=== PATIENT | female | born 1975 | race Caucasian/White ===

== ENCOUNTER → 2016-12-05 | Outpatient (CLI) | payer OTHER ==
--- NOTE | 2016-12-05 10:32 | RAD ---
Indication lung nodule. History of kidney stones. Noncontrast imaging through the chest and abdomen was performed. The pelvis was not examined. No prior imaging of the chest or abdomen is available. CT chest: Findings. There is some mild mediastinal adenopathy. Definite pathologic mediastinal or hilar adenopathy is not seen. There is some mild dilatation of the esophagus below the alexsandra. This is nonspecific. A dominant soft tissue mass in either lung is not seen. There is a 2 to 3 mm nodule peripherally in the right lower lobe, image 26 series 2. Follow-up imaging along the lines of the Fleischner criteria should be considered. There is a peripheral nodule in the right middle lobe, image 29 measuring approximately [address] abdomen: Findings. The spleen is mildly enlarged but otherwise unremarkable. The liver appears normal. Clips are seen in the gallbladder fossa. The pancreas appears normal. No adrenal masses are seen. The left kidney appears normal. No left renal calculi are seen. There is a minute, approximately 2 mm, right renal calculus. The right kidney otherwise appears unremarkable. The pancreas appears unremarkable. Acute or definite significant finding in the abdomen is not seen. There is no significant central or retroperitoneal adenopathy. IMPRESSION: No acute finding seen in the chest or abdomen. Mild mediastinal adenopathy. This is nonspecific. Mild splenomegaly. Minute right renal calculus Small pulmonary nodules. Follow-up imaging along the lines of the Fleischner criteria should be considered Nodules detected incidentally at non-screening CT Nodule size (mm) less than or equal to 4 Low Risk patients- no follow-up needed High Risk patients- follow-up at 12 months and if no change, no further imaging needed. Nodule size > 4-6 mm Low risk patients- follow- up at 12 months and if no change, no further imaging needed High risk patients- initial follow-up CT at 6-12 months and then at 18-24 months if no change. Nodule Size > 6-8 mm Low risk patients- initial follow-up CT at 6-12 months and then at 18-24 months if no change. High risk patients- initial follow- up CT at 3-6 months and then at 9-12 months if no change, Nodule Size >8 mm Either low or high risk patients: Follow-up CT at around 3, 9 and 24 [address], PET, and/or biopsy Note: newly detected indeterminate nodule in person 35 years of age or older. Low risk patients- minimal or absent history of smoking and/or other known risk factors. High risk patients- history of smoking or of other known risk factors. PQRS Compliance Statement: One or more of the following individualized dose reduction techniques were utilized for this examination: 1. Automated exposure control 2. Adjustment of the mA and/or kV according to patient size 3. Use of iterative reconstruction technique
== END | disposition home or self-care (01) ==
LOC: CT 09:35
PROVIDERS: ATTEND Nurse Practitioner Family
DX: R93.5 Abnormal findings on diagnostic imaging of other abdominal regions, including retroperitoneum (principal); R91.1 Solitary pulmonary nodule; Z87.442 Personal history of urinary calculi
CPT/HCPCS: 71250; 74150

== ENCOUNTER → 2017-01-22 | Outpatient (CLI) | payer OTHER ==
--- NOTE | 2017-01-22 12:30 | RAD ---
EXAM: Abdomen one view. HISTORY: Right renal stone. COMPARISON: 12/05/2016. FINDINGS: A frontal view of the abdomen is obtained. The small right renal calculus noted on prior CT is not detectable by radiographs. There are no clear ureteral calculi. There are no distended small bowel loops. There is gas distally. Cholecystectomy clips are noted. An anastomotic suture line is seen in the left upper quadrant. IMPRESSION: 1. The previously noted small right renal calculus is not detectable by radiographs.
== END | disposition home or self-care (01) ==
LOC: RAD 09:44
PROVIDERS: ATTEND Nurse Practitioner Occupational Health
DX: N20.0 Calculus of kidney (principal)
CPT/HCPCS: 74000

== ENCOUNTER → 2017-02-28 | Outpatient (CLI) | payer OTHER ==
[~2017-02-28] MED LIST: FUROSEMIDE 40 MG/4 ML VIAL. IVP ONE
--- NOTE | 2017-02-28 12:13 | RAD ---
Radionuclide renal scan with Lasix, 02/28/2017: History: Right flank pain Imaging of the kidneys was performed following IV injection of 10.6 mCi of technetium 99m MAG3. There is prompt symmetrical opacification of both kidneys. There is prompt uptake of the radionuclide by both kidneys in a symmetric pattern. 40 mg of Lasix was administered IV 15 minutes into the exam. There is good clearing of contrast from the renal collecting systems. No significant parenchymal retention is evident on the delayed images. Normal bladder activity is seen. IMPRESSION: 1. Normal symmetric renal function. 2. No evidence of renal obstruction.
== END | disposition home or self-care (01) ==
LOC: NM 08:38
PROVIDERS: ATTEND Urology
DX: R10.9 Unspecified abdominal pain (principal)
CPT/HCPCS: 78708; 96374; 96375; A9562; J1940

== ENCOUNTER → 2017-09-17 | Outpatient (CLI) | payer OTHER ==
--- NOTE | 2017-09-17 15:22 | KCIC ---
EXAM: Left ankle, 3 views. HISTORY: Pain. COMPARISON: None. FINDINGS: Frontal, lateral and mortise views of the left ankle are obtained. There is no fracture, dislocation or subluxation. The ankle mortise is intact. No osteochondral lesion is seen. IMPRESSION: No acute osseous finding. Electronically signed by: Katarzyna Rosales MD (09/17/2017 3:19 PM) [facility]
== END | disposition home or self-care (01) ==
LOC: KCIC 14:57
PROVIDERS: ATTEND Nurse Practitioner Family
DX: M25.572 Pain in left ankle and joints of left foot (principal)
CPT/HCPCS: 73610

== ENCOUNTER → 2018-09-04 | Outpatient (CLI) | payer OTHER ==
--- NOTE | 2018-09-04 11:02 | RAD ---
DATE: 09/04/2018 EXAM: DIGITAL SCREEN BILAT W/CAD HISTORY: Routine screening COMPARISON: Baseline study This study was interpreted with the benefit of Computerized Aided Detection (CAD). Breast Density: SCATTERED The breast parenchyma shows scattered fibroglandular densities. Breast parenchyma level B. FINDINGS: No suspicious breast densities are seen. Minimal benign type calcification is noted. No suspicious microcalcifications are evident. IMPRESSION: There is no mammographic evidence of malignancy in either breast. BI-RADS CATEGORY: 2 BENIGN FINDING(S) RECOMMENDED FOLLOW-UP: 12M 12 MONTH FOLLOW-UP PQRS compliance statement: Patient information was entered into a reminder system with a target due date for the next mammogram. Mammography is a sensitive method for finding small breast cancers, but it does not detect them all and is not a substitute for careful clinical examination. A negative mammogram does not negate a clinically suspicious finding and should not result in delay in biopsying a clinically suspicious abnormality. "Our facility is accredited by the [employer] Mammography Program."
--- NOTE | 2018-09-04 13:12 | RAD ---
CT of the chest without contrast, 09/04/2018: HISTORY: Follow-up lung nodule Noncontrast scans were obtained and compared to a study from 12/05/2016. Several small scattered mediastinal lymph nodes are again noted without evidence of pathologic enlargement. There is minimal calcific plaquing of the thoracic aorta. The heart is of normal size. There is an unchanged flat perifissural nodule along the lateral aspect of the right oblique fissure, as seen on image 181 of series #3. This has a benign appearance. There is a peripheral linear opacity in the anterolateral aspect of the right middle lobe as seen on image 185 of series #3, which is also unchanged and is most likely a scar. No pulmonary mass or significant consolidation is seen. There is no evidence of pleural fluid. There are postsurgical changes involving the stomach and the small bowel in the left upper quadrant. Streaky subcutaneous densities in the anterior abdominal wall on the left are incompletely visualized but probably represent scars. There is borderline splenomegaly, similar to that seen on the previous exam. IMPRESSION: 1. Probably benign small perifissural right lung nodule and right middle lobe scarring. 2. No new chest abnormality is detected. PQRS Compliance Statement: One or more of the following individualized dose reduction techniques were utilized for this examination: 1. Automated exposure control 2. Adjustment of the mA and/or kV according to patient size 3. Use of iterative reconstruction technique Electronically signed by: Mauricio Middleton MD (09/04/2018 1:08 PM) [facility]
== END | disposition home or self-care (01) ==
LOC: MAMMO 10:32
PROVIDERS: ATTEND Nurse Practitioner Family
DX: Z12.31 Encounter for screening mammogram for malignant neoplasm of breast (principal); R91.1 Solitary pulmonary nodule
CPT/HCPCS: 71250; 77067

== ENCOUNTER → 2018-11-13 | Outpatient (CLI) | payer OTHER ==
[~2018-11-13] MED LIST changes: +ALPR0.5T6 PO; -FUROSEMIDE 40 MG/4 ML VIAL. IVP ONE; +LEVO50TA5 PO; +LORA10TA3 PO; +MULT-246 PO; +OMEP20TA8 PO; +SERT100T8 PO
--- NOTE | 2018-11-13 13:48 | EKG ---
[facility] [address] [place] [address] Test Date: 2018-11-13 Test Time: 13:56:51 Pat Name: CELIA MOBLEY Department: Room: Gender: F Naturopathic Physician: : [id number] Requested By: EDWIN MOISE Order Number: [id number] Reading MD: Joaquín Willis Measurements Intervals [place] Rate: 83 P: 33 [place]: 158 QRS: 39 QRSD: 86 T: 33 QT: 350 QTc: 412 Interpretive Statements SINUS RHYTHM Electronically Signed On 11-17-2018 9:10:17 SECURITY CHECKER by Joaquín Willis
[2018-11-13 14:08] LABS: BASO # 0.1 x10^3/uL (0.0-0.2); BASO % 1 % (0-3); EOS # 0.2 x10^3/uL (0.0-0.7); EOS % 2 % (0-3); HEMATOCRIT 30.1 % (36.0-47.0); HEMOGLOBIN 9.4 g/dL (12.0-15.5); LYMPH # 2.1 x10^3/uL (1.0-4.8); LYMPH % 20 % (24-48); MEAN CORPUSCULAR HEMOGLOBIN 21 pg (25-35); MEAN CORPUSCULAR HGB CONC 31 g/dL (31-37); MEAN CORPUSCULAR VOLUME 66 fL (79-100); MONO # 0.8 x10^3/uL (0.0-1.1); MONO % 8 % (0-9); NEUT # 7.4 x10^3uL (1.8-7.7); NEUT % 70 % (31-73); PLATELET COUNT 228 x10^3/uL (140-400); RED BLOOD COUNT 4.55 x10^6/uL (3.50-5.40); RED CELL DISTRIBUTION WIDTH 16.9 % (11.5-14.5); WHITE BLOOD COUNT 10.6 x10^3/uL (4.0-11.0)
[2018-11-13 14:20] LABS: ALBUMIN 3.5 g/dL (3.4-5.0); ALBUMIN/GLOBULIN RATIO 0.9 (1.0-1.7); CALCIUM 8.7 mg/dL (8.5-10.1); CREATININE 0.7 mg/dL (0.6-1.0); GFR 92.7; POTASSIUM 4.1 mmol/L (3.5-5.1); TOTAL BILIRUBIN 0.3 mg/dL (0.2-1.0); TOTAL PROTEIN 7.6 g/dL (6.4-8.2)
[2018-11-13 15:32] LABS: PLT ESTIMATE ADEQUATE (ADEQUATE)
[2018-11-13 15:33] LABS: HYPOCHROMIA MOD; POLYCHROMASIA SLIGHT
[2018-11-13 15:34] LABS: MICROCYTOSIS MARKED; POIKILOCYTOSIS SLIGHT; SPHEROCYTES FEW
--- NOTE | 2018-11-13 16:24 | RAD ---
PROCEDURE: CHEST PA LATERAL CLINICAL INDICATION: PRE-OP CHEST, HYSTERECTOMY 12- 19 COMPARISON: None FINDINGS: No pneumothorax identified. Cardiac and mediastinal contours unremarkable. No pulmonary consolidation or acute airspace disease. No acute osseous abnormalities identified. IMPRESSION: No pulmonary consolidation or acute airspace disease. Electronically signed by: Lazaro Sena DO (11/13/2018 4:20 PM) [facility]
[2018-11-13 16:35] LABS: BILIRUBIN,URINE NEGATIVE (NEG); CLARITY,URINE CLEAR; COLOR,URINE YELLOW; NITRITE,URINE NEGATIVE (NEG); PROTEIN,URINE NEGATIVE (NEG-TRACE)
[2018-11-13 17:06] LABS: SQUAMOUS EPITHELIAL CELL,UR MANY /LPF
[2018-11-13 17:07] LABS: BACTERIA,URINE MODERATE /HPF (0-FEW)
== END | disposition home or self-care (01) ==
LOC: SURGPAT 13:15
PROVIDERS: ATTEND Obstetrics & Gynecology
DX: Z01.818 Encounter for other preprocedural examination (principal); I49.9 Cardiac arrhythmia, unspecified; Z88.0 Allergy status to penicillin; Z88.8 Allergy status to other drugs, medicaments and biological substances
CPT/HCPCS: 36415; 71046; 80053; 81001; 85025; 87086; 93005

== ENCOUNTER 2018-11-18 08:43 | Observation (INO) | payer OTHER ==
[2018-11-18] VITALS (9 sets, daily range): BP systolic 116–131; BP diastolic 49–69
[~2018-11-18] VITALS: Ht 165.1 cm; Wt 98.4 kg
[~2018-11-18 08:43] MED LIST changes: +CLINDAMYCIN 900MG PREMIX 50 ML IV ONE; +DEXAMETHASONE SOD PHOS 20 MG/5 ML VIAL. ONE; +HYDROmorphone 2 MG/ML VIAL IV PRN; +IV RINGERS,LACTATED 1000ML 1,000 ML IV SCH; +KETOROLAC 30 MG/ML INJ FOR OR. INJ ONE; +LIDOCAINE 1% PF 2 ML VIAL. ID PRN; +LIDOCAINE 2% PF Vial for OR 5 ML VIAL. ONE; +MIDAZOLAM HCL/PF 2 MG/2 ML VIAL. ONE; +MORPHINE SULFATE 2 MG/ML VIAL. IV PRN; +ONDANSETRON PF 4 MG/2 ML VIAL. IV PRN; +ONDANSETRON PF 4 MG/2 ML VIAL. ONE; +PROCHLORPERAZINE 10 MG/2 ML VIAL. IV PRN; +PROPOFOL 20 ML IV ONE; +ROCURONIUM 50 MG/5 ML VIAL. ONE; +fentaNYL PF VIAL 100 MCG/2 ML VIAL IV PRN; +fentaNYL PF VIAL 100 MCG/2 ML VIAL ONE
[2018-11-18] MEDS ORDERED: METHYLENE BLUE 1% 10 ML VIAL. ONE (09:13)
[2018-11-18] MEDS ORDERED: ESTROGENS, CONJ VAGINAL CREAM 30GM TUBE. ONE (09:13)
[2018-11-18] MEDS ORDERED: BUPIVAC MPF-EPI 0.5%-1:200000 30 ML VIAL. ONE (09:13)
[2018-11-18 09:22] LABS: U PREG PATIENT NEGATIVE (NEG)
[2018-11-18] MEDS ORDERED: SCOPOLAMINE 1.5MG PATCH. TD ONE ×2 (09:34→09:45)
[2018-11-18] MEDS ORDERED: SEVOFLURANE 61 TO 120 MINUTES. IH ONE (10:16)
[2018-11-18] MEDS ORDERED: fentaNYL PF VIAL 100 MCG/2 ML VIAL ONE (10:16)
[2018-11-18] MEDS ORDERED: ePHEDrine PF IN SALINE 50 MG/5 ML DISP.SYRIN IV ONE (10:22)
[2018-11-18] MEDS ORDERED: ROCURONIUM 50 MG/5 ML VIAL. ONE (10:26)
[2018-11-18] MEDS ORDERED: MAGNESIUM HYDROXIDE 2,400 MG/30 ML ORAL.SUSP. PO PRN (11:45)
[2018-11-18] MEDS ORDERED: MAG HYDROX/ALUMINUM HYD/SIMETH 30 ML ORAL.SUSP PO PRN (11:45)
[2018-11-18] MEDS ORDERED: ONDANSETRON PF 4 MG/2 ML VIAL. IV PRN (11:45)
[2018-11-18] MEDS ORDERED: 0.9 % SODIUM CHLORIDE 10 ML DISP.SYRIN. IV PRN (11:45)
[2018-11-18] MEDS ORDERED: NALOXONE 0.4 MG/ML VIAL. IV PRN (11:45)
[2018-11-18] MEDS ORDERED: HYDROcodone/APAP 5/325MG 1 TAB TABLET PO PRN (11:45)
[2018-11-18] MEDS ORDERED: LACTULOSE 20 GM/30 ML SOLUTION. PO PRN (11:45)
[2018-11-18] MEDS ORDERED: SIMETHICONE 80 MG TAB.CHEW PO PRN (11:45)
[2018-11-18] MEDS ORDERED: diphenhydrAMINE HCL 25 MG CAPSULE PO PRN (11:45)
[2018-11-18] MEDS ORDERED: diphenhydrAMINE 50 MG/ML VIAL IV PRN (11:45)
[2018-11-18] MEDS ORDERED: CALCIUM CARBONATE 500 MG TAB.CHEW PO PRN (11:45)
[2018-11-18] MEDS ORDERED: MORPHINE SULFATE 4 MG/ML VIAL. IV PRN (11:45)
[2018-11-18] MEDS ORDERED: ZOLPIDEM 5 MG TABLET. PO PRN (11:45)
--- NOTE | 2018-11-18 11:48 | PDOC ---
BRIEF OPERATIVE NOTE Date: Nov 18, 2018 Pre-Op Diagnosis menorrhagia, anemia, enlarged fibroid uterus Post-Op Diagnosis same Procedure Performed LAVH with bilateral salpingectomy Surgeon Dr. Griselda Wong Associate Editor Juan Ramon Baer Anesthesiologist Dr. Maxwell Anesthesia Type: General Blood Loss 50cc IV Fluid 1L Urine Output 100cc clear via vick Specimens Obtained cervix, uterus, bilateral tubes Findings enlarged fibroid uterus, anterior bladder adhesions Complications none Operative Note [id number] GRISELDA WONG MD Nov 18, 2018 11:48
[2018-11-18] MEDS ORDERED: PROCHLORPERAZINE 10 MG/2 ML VIAL. ONE (12:25)
--- NOTE | 2018-11-18 12:34 | OP ---
DATE OF SURGERY: 11/18/2018 PREOPERATIVE DIAGNOSES: 1. Menorrhagia. 2. Anemia. 3. Enlarged fibroid uterus. POSTOPERATIVE DIAGNOSES: 1. Menorrhagia. 2. Anemia. 3. Enlarged fibroid uterus. PROCEDURE: Laparoscopic assisted vaginal hysterectomy with bilateral salpingectomy. SURGEON: Edwin Wong M.D. WIRE MILL ROVER: ROSALINE Fleming ANESTHESIOLOGIST: Dr. Maxwell. ANESTHESIA: General. ESTIMATED BLOOD LOSS: 50 mL. URINE OUTPUT: 100 mL clear via Mcneil catheter. FLUIDS: 1 liter of Crystalloid. SPECIMENS: Cervix, uterus, bilateral tubes. FINDINGS: An enlarged fibroid uterus, mild anterior bladder adhesions. COMPLICATIONS: None. DESCRIPTION OF PROCEDURE: This patient was taken to the operating room where general anesthesia was placed. The patient was placed in dorsal lithotomy position in Polo stirrups. The patient's abdomen and vagina were prepped and draped in the normal sterile fashion, and a Mcneil catheter had been inserted under sterile technique. Upon my arrival, a timeout was performed. Once everyone agreed, a bivalve speculum was placed in the patient's vagina. A single-tooth tenaculum was used to grasp the anterior lip of the cervix. 10 mL of 0.25% Marcaine with epinephrine was used to circumferentially inject around the cervix for both hemodissection and hemostatic purposes. The ValtchTrackVia uterine manipulator was placed through the endocervical os, locked on the single tooth tenaculum and the bivalve speculum was then removed. Top gloves were discarded and changed. Attention was then turned to the abdomen where a small infraumbilical skin incision was made over a previously existing scar. A curved Jeni was used to dissect through the subcuticular layer to the fascia. The 5 mm Visiport was used to directly enter the abdominal cavity. Opening patient pressure was 4-5 mmHg. Direct abdominal placement was confirmed via the laparoscope. Carbon dioxide gas was used to then appropriately insufflate the abdominal cavity to maintain a pressure of 15 mmHg. Right and left lower quadrant ports were placed after finding an area clear on the inside. Finding an area clear of any vasculature when transilluminating the abdomen, making a small incision and placing the atraumatic 5 mm disposable trocar through under direct visualization. A 2 mL of air were placed in the cuffs on the trocars. The scope was moved to look at the umbilical port. It was also clear, and the 2 mL of air was placed in this one as well. At this point, the enlarged fibroid uterus was seen. Normal bilateral tubes and ovaries. So, both ovaries were cut per the patient's request. The tubes were elevated, and a salpingectomy was performed starting on the left side, then crossing the round in the left. Starting on the left side, doing a salpingectomy, crossing the left round ligament and then the left uterine ovarian pedicle. This was done exactly the same on the right, doing the salpingectomy, crossing the right round ligament and the right uterine ovarian pedicle, cauterizing and cutting with the LigaSure the whole way. The bladder flap was created sharply. Once this was done, the uterine vessels were obtained on both sides in going through the cardinal and broad ligaments down to the level of the uterosacrals bilaterally. The right ovary had some mild adhesions. These were taken down to the cardinal and broad ligaments, even once the right utero-ovarian pedicle was done and still kind of wanted to stick to the posterior part of the uterus, but going through the cardinal and broad and peeling it off, I did get it free. She kept both normal ovaries. Once everything was taken down to the uterosacrals, all instruments were removed from the abdomen and attention was turned vaginally. The single tooth and Valtchev were removed. A weighted speculum was placed in the patient's vagina. Thyroid Amanda clamps were placed on the anterior and posterior lips of the cervix respectively. A scalpel was used to make a circumferential incision. An open Ray-Jovita 4 x 4 was used to gently push up the anterior bladder peritoneum. The cervix was elevated. The posterior cul-de-sac was sharply entered with curved Woodall scissors. A #0 Vicryl stitch was used to secure the posterior peritoneum here to the vaginal cuff and was tagged with a curved Jeni clamp. The needle was cut and passed off. The short weighted speculum was removed, and it was replaced with the long Luisa speculum in the posterior cul-de-sac. We were not in anteriorly, but it was up and very thin, so curved Migdalia clamps x 2 were placed on the patient's left uterosacral ligament. They were doubly clamped with curved Heaneys, cut with Woodall scissors and suture ligated x 2 with 0 Vicryl. Second one was taken through the vaginal cuff, securing uterosacral ligament to the vaginal cuff and it was tagged with a straight Jeni clamp and the needle was cut and passed off. This was done exactly the same on the patient's right side. Double clamping the uterosacrals with curved Migdalia's, cutting with Woodall scissors, suture ligating x 2 with 0 Vicryl, taking the second one through the vaginal cuff, securing uterosacral ligament to the vaginal cuff, tagging it with a straight Jeni clamp and cutting and passing the needle off. Once this was done, I did get in on the patient's left side and was able to pass the right angle Mixter around it and the vaginal LigaSure was used to cauterize and cut the remaining pedicle. Once the anterior fibroid delivered, it did show that we were actually free on the right side, the right side delivered. There was one tiny posterior peritoneal tag that was seen on the left side. The Mixter got around, and it was cauterized and cut. Cervix, uterus and bilateral tubes were delivered in toto. Sponge stick was used to examine the pedicles. A long Allis was used to grasp the anterior bladder peritoneum. The long Luisa speculum was removed and replaced with the short weighted vaginal speculum. 2-0 Vicryl was taken through anterior bladder peritoneum, left uterosacral ligament, posterior peritoneum and right uterosacral ligament, thus closing the peritoneum in a pursestring like fashion. Once this was done, the right and left uterosacral tags were clipped. A full length 2-0 Vicryl was used to close the vaginal cuff in a running locked fashion from anterior to posterior and tied to that posterior vaginal cuff tag from the beginning. One imbricating stitch in the middle was placed for hemostasis with excellent results. Sponge stick was used to examine the vaginal cuff, and it was hemostatic, so all instruments were removed from the vagina and attention was turned back above for a second look. All gloves were discarded and changed and attention was turned back above for a second look. Copious irrigation revealed hemostasis. Tisseel was placed over the pedicles. The air was deflated from the trocars, and the right and left lower quadrant ports were taken out under direct visualization. These two were hemostatic. Gas was released from the umbilical port. All three port sites were closed with 4-0 nylon at the skin and injected with local. The patient tolerated the procedure well. There were no complications. She is currently being awakened from anesthesia. EDWIN WONG MD DR: SILVER/jacobo JOB#: [id number] / [id number]
[2018-11-18] MEDS: oxyCODONE/APAP 5/325 1 TAB TABLET PO PRN ×2 (17:26→22:04)
[2018-11-18] MEDS ORDERED: ALPRAZolam 0.5 MG TABLET PO SCH (21:00)
[2018-11-18] MEDS ORDERED: ALPRAZolam 0.25 MG TABLET PO SCH (22:00)
[2018-11-19 01:30] VITALS: BP 127/56
[2018-11-19] MEDS: oxyCODONE/APAP 5/325 1 TAB TABLET PO PRN ×2 (01:47→05:27)
[2018-11-19 05:30] VITALS: BP 115/61
[2018-11-19] MEDS ORDERED: LEVOTHYROXINE 50 MCG TABLET PO SCH (06:00)
[2018-11-19 06:03] LABS: CALCIUM 8.9 mg/dL (8.5-10.1); CREATININE 0.7 mg/dL (0.6-1.0); GFR 92.7; POTASSIUM 3.8 mmol/L (3.5-5.1)
[2018-11-19] MEDS ORDERED: PANTOPRAZOLE 40 MG TABLET.DR. PO SCH (07:30)
[2018-11-19] MEDS ORDERED: SERTRALINE 50 MG TABLET. PO SCH (09:00)
--- NOTE | 2018-11-19 09:37 | PDOC ---
SURGICAL PROGRESS NOTE Subjective Doing well without complaints. Voiding without catheter, tolerating regular diet, minimal pain and scant spotting only. Dressed and ready to go home upon my arrival this am Vital Signs Vital Signs Date Time Temp Pulse Resp B/P (MAP) Pulse Ox O2 Delivery O2 Flow Rate FiO2 11/19/18 05:30 97.5 66 20 115/61 (79) 97 Room Air 97.5 11/18/18 12:09 10 I&O Intake and Output 11/19/18 07:00 Intake Total 3276 ml Output Total 2835 ml Balance 441 ml Intake Oral 505 ml IV Total 2250 ml Other 521 ml Output Urine Total 2785 ml Estimated Blood Loss 50 ml PATIENT HAS A NULL: No General: Alert, Oriented X3, Cooperative, No acute distress HEENT: Atraumatic Heart: Regular rate Abdomen: Soft, No tenderness, No masses Extremities: No clubbing, No cyanosis, No edema, No tenderness/swelling Skin: No rashes, No breakdown, No significant lesion Neuro: Normal speech Psych/Mental Status: Mental status NL, Mood NL Labs Laboratory Tests Test 11/18/18 08:45 11/19/18 05:10 11/19/18 05:20 Urine Test Negative (NEG) Sodium Level 139 mmol/L (136-145) Potassium Level 3.8 mmol/L (3.5-5.1) Chloride Level 101 mmol/L (98-107) Carbon Dioxide Level 29 mmol/L (21-32) Anion Gap 9 (6-14) Blood Urea Nitrogen 9 mg/dL (7-20) Creatinine 0.7 mg/dL (0.6-1.0) Estimated GFR (Cockcroft-Gault) 92.7 Glucose Level 82 mg/dL (70-99) Calcium Level 8.9 mg/dL (8.5-10.1) Hematocrit 27.0 % (36.0-47.0) Laboratory Tests Test 11/19/18 05:10 11/19/18 05:20 Sodium Level 139 mmol/L (136-145) Potassium Level 3.8 mmol/L (3.5-5.1) Chloride Level 101 mmol/L (98-107) Carbon Dioxide Level 29 mmol/L (21-32) Anion Gap 9 (6-14) Blood Urea Nitrogen 9 mg/dL (7-20) Creatinine 0.7 mg/dL (0.6-1.0) Estimated GFR (Cockcroft-Gault) 92.7 Glucose Level 82 mg/dL (70-99) Calcium Level 8.9 mg/dL (8.5-10.1) Hematocrit 27.0 % (36.0-47.0) I have reviewed the following labs, vitals, nursing Cardiovascular: Other (irreg heartbeat) Pulmonary: No pertinent hx GI: No pertinent hx Heme/Onc: Anemia NOS Rheumatologic: No pertinent hx Infectious disease: No pertinent hx Assessment/Plan POD #1 s/p LAVH/bilateral salpingectomy Routine PO care d/c to home NPV x 6 weeks light/limited activity x 2 weeks keep scheduled follow up with me in one week already has narcotic pain meds filled at home call or return sooner for any other questions or concerns not limited to but including pain unrelieved with pain meds, increased or unexplained vaginal bleeding or T>100.4 EDWIN MOISE MD Nov 19, 2018 09:37
--- NOTE | 2018-11-19 09:39 | PDOC3 ---
Discharge Summary Visit Information Date of Admission: Nov 18, 2018 Date of Discharge: Nov 19, 2018 Brief Hospital Course Allergies Allergies Coded Allergies Type Severity Reaction Last Updated Verified Penicillins Allergy Intermediate Hives 11/18/18 Yes ciprofloxacin Allergy Intermediate Hives 11/18/18 Yes Vital Signs Vital Signs Date Time Temp Pulse Resp B/P (MAP) Pulse Ox O2 Delivery O2 Flow Rate FiO2 11/19/18 05:30 97.5 66 20 115/61 (79) 97 Room Air 97.5 11/18/18 12:09 10 Lab Results Laboratory Tests Test 11/18/18 08:45 11/19/18 05:10 11/19/18 05:20 Urine Test Negative (NEG) Sodium Level 139 mmol/L (136-145) Potassium Level 3.8 mmol/L (3.5-5.1) Chloride Level 101 mmol/L (98-107) Carbon Dioxide Level 29 mmol/L (21-32) Anion Gap 9 (6-14) Blood Urea Nitrogen 9 mg/dL (7-20) Creatinine 0.7 mg/dL (0.6-1.0) Estimated GFR (Cockcroft-Gault) 92.7 Glucose Level 82 mg/dL (70-99) Calcium Level 8.9 mg/dL (8.5-10.1) Hematocrit 27.0 % (36.0-47.0) Laboratory Tests Test 11/19/18 05:10 11/19/18 05:20 Sodium Level 139 mmol/L (136-145) Potassium Level 3.8 mmol/L (3.5-5.1) Chloride Level 101 mmol/L (98-107) Carbon Dioxide Level 29 mmol/L (21-32) Anion Gap 9 (6-14) Blood Urea Nitrogen 9 mg/dL (7-20) Creatinine 0.7 mg/dL (0.6-1.0) Estimated GFR (Cockcroft-Gault) 92.7 Glucose Level 82 mg/dL (70-99) Calcium Level 8.9 mg/dL (8.5-10.1) Hematocrit 27.0 % (36.0-47.0) Brief Hospital Course Ms. Harvey is a 42 old [sex] who presented with [ ] Discharge Information Condition at Discharge: Improved Follow Up: Weeks Disposition/Orders: D/C to Home Scheduled Alprazolam (Alprazolam) 0.5 Mg Tablet, 1 TAB PO HS for ANXIETY, #30 (Reported) Entered as Reported by: LUPE CERVANTES on 11/13/181358 Last Taken: Unknown Dose on 11/18/18599 Last Action: Continued on 11/18 by EDWIN MOISE Levothyroxine Sodium (Levothyroxine Sodium) 50 Mcg Tablet, 50 MCG PO DAILYAC for THYROID SUPPLEMENT, #30 Ref 0 (Reported) Entered as Reported by: LUPE CERVANTES on 11/13/181358 Last Taken: Unknown Dose on 11/18/18599 Last Action: Converted on 11/18 by EDWIN MOISE Loratadine (Loratadine) 10 Mg Tablet, 10 MG PO DAILY for ALLERGIES, (Reported) Entered as Reported by: LUPE CERVANTES on 11/13/181358 Last Taken: Unknown Dose on 11/17/18 08 Last Action: HELD on 11/18/18918 by EDWIN MOISE Multivitamin (Multi-Vitamin Daily) 1 Each Tablet, 1 EACH PO DAILY for VITAMIN, ( Reported) Entered as Reported by: LUPE CERVANTES on 11/13/181358 Last Taken: Unknown Dose on 11/16/18 Last Action: HELD on 11/18/18918 by EDWIN MOISE Omeprazole (Omeprazole) 20 Mg Tablet.dr, 20 MG PO DAILY for REFLUX, (Reported) Entered as Reported by: LUPE CERVANTES on 11/13/181358 Last Taken: Unknown Dose on 11/18/18599 Last Action: Converted on 11/18 by EDWIN MOISE Sertraline Hcl (Sertraline Hcl) 100 Mg Tablet, 100 MG PO DAILY for ANTI- DEPRESSANT, Ref 0 (Reported) Entered as Reported by: LUPE CERVANTES on 11/13/181358 Last Taken: Unknown Dose on 11/17/18 2200 Last Action: Converted on 11/18 by EDWIN MOISE Patient Instructions Patient Instructions POD #1 s/p LAVH/bilateral salpingectomy Routine PO care d/c to home NPV x 6 weeks light/limited activity x 2 weeks keep scheduled follow up with me in one week already has narcotic pain meds filled at home call or return sooner for any other questions or concerns not limited to but including pain unrelieved with pain meds, increased or unexplained vaginal bleeding or T>100.4 EDWIN MOISE MD Nov 19, 2018 09:39
--- NOTE | 2018-11-20 15:09 | PATHOLOGY ---
[facility] Accession Number: [id number] . 01 Material submitted: . CERVIX,UTERUS AND TUBES . 01 Clinical history: . Uterine fibroids. . 02 Diagnosis: Uterus and bilateral fallopian tubes, hysterectomy and bilateral salpingectomy: - Cervix with mild chronic inflammation, squamous metaplasia and nabothian cysts. - Proliferative phase endometrium. - Myometrium with leiomyomata, two, up to 2.8 cm. - Serosal surface with no pathologic diagnosis. - Right and left fallopian tubes with no significant histopathologic diagnosis. (SKM:[facility] 11/20/2018) [facility] . 02 Electronically signed: . Mark Sherman MD, Pathologist NPI- [id number] . 01 Gross description: . Received in formalin labeled "Gertrude Harvey, cervix, uterus, tubes" is a hysterectomy specimen consisting of a uterus with attached fallopian tubes and without attached ovaries. The uterus weighs 122 g and measures 10.5 cm from fundus to cervix, 5.8 cm from cornu to cornu, and 4.5 cm from anterior to posterior. The serosa is pink hinojosa and smooth. The cervical os is slitlike and measures 1.3 cm, and the ectocervix is pink-hinojosa and somewhat ragged. The cervix is probed patent and the uterus is opened to reveal a 3.6 x 2.0 cm endometrial cavity and a 2.5 x 0.9 cm endocervical canal. The average endometrial thickness measures 0.4 cm and the average myometrial thickness measures 1.5 cm. The uterus is serially sectioned to reveal two leiomyomata measuring 2.5 and 2.8 cm in greatest dimension, which both display areas of hemorrhage. The right fimbriated fallopian tube measures 5.5 cm in length and 0.6 cm in diameter. The left fimbriated fallopian tube measures 5.4 cm in length and 0.7 cm in diameter. The serosal surfaces are pink hinojosa and smooth and the fallopian tubes are serially sectioned to reveal pinpoint lumens. Concession Manager sections are submitted as follows: A1 12:00 cervix A2 6:00 cervix A3 anterior endomyometrium A4 posterior endomyometrium A5 sales representative publications right fallopian tube A6 sales representative publications left fallopian tube A7-A8 sales representative publications leiomyomata [place] 11/19/2018[place] SYC/SYC . 02 Pathologist provided ICD-10: N72, N88.8, D25.9 . 02 CPT . 044898 Specimen Comment: A courtesy copy of this report has been sent to Specimen Comment: [phone]. Specimen Comment: Report sent to Performed at: 01 [facility] [address], [place] [id number] MD Deng Angel MD Phone: [phone] Performed at: 02 [facility] [address] [place], [place] [id number] MD Atif Sawyer MD Phone: [phone]
== END 2018-11-19 11:00 | disposition home or self-care (01) ==
LOC: SURG 08:43 → 3 NORTH 12:00
PROVIDERS: ADMIT Obstetrics & Gynecology; ATTEND Obstetrics & Gynecology
DX: D25.9 Leiomyoma of uterus, unspecified (principal); D64.9 Anemia, unspecified; N92.0 Excessive and frequent menstruation with regular cycle
CPT/HCPCS: 36415; 58552; 80048; 81025; 85014; 86850; 86900; 86901; A7015; G0378; G0379; J0780; J1100; J1885; J2001; J2250; J2405; J2704; J3010; J3490; J7030; Q9968; J1956

== ENCOUNTER → 2019-04-01 | Day surgery (SDC) | payer OTHER ==
[~2019-04-01] MED LIST changes: -CLINDAMYCIN 900MG PREMIX 50 ML IV ONE; -DEXAMETHASONE SOD PHOS 20 MG/5 ML VIAL. ONE; -HYDROmorphone 2 MG/ML VIAL IV PRN; -KETOROLAC 30 MG/ML INJ FOR OR. INJ ONE; -LIDOCAINE 1% PF 2 ML VIAL. ID PRN; +LIDOCAINE 2% PF 5 ML VIAL. ONE; -LIDOCAINE 2% PF Vial for OR 5 ML VIAL. ONE; -MIDAZOLAM HCL/PF 2 MG/2 ML VIAL. ONE; -MORPHINE SULFATE 2 MG/ML VIAL. IV PRN; -ONDANSETRON PF 4 MG/2 ML VIAL. IV PRN; -ONDANSETRON PF 4 MG/2 ML VIAL. ONE; -PROCHLORPERAZINE 10 MG/2 ML VIAL. IV PRN; +PROPOFOL 40 ML IV ONE; -ROCURONIUM 50 MG/5 ML VIAL. ONE; -fentaNYL PF VIAL 100 MCG/2 ML VIAL IV PRN; -fentaNYL PF VIAL 100 MCG/2 ML VIAL ONE
[2019-04-01 12:14] VITALS: BP 135/68
--- NOTE | 2019-04-02 16:06 | PATHOLOGY ---
[facility] Accession Number: [id number] . 01 Material submitted: . PART A: jejunum - JEJUNUM BIOPSY PART B: stomach - GASTRIC POLYP PART C: esophagus - DISTAL ESOPHAGUS. Modifiers: distal PART D: ileum - TERMINAL ILEUM PART E: colon - RIGHT COLON. Modifiers: right PART F: colon - LEFT COLON. Modifiers: left PART G: rectum - RECTUM POLYPS . 01 Clinical history: . Anemia . 02 Diagnosis: A. Jejunum biopsies: - No significant pathologic abnormalities. . B. Gastric polyp biopsies: - Segments of small intestine mucosa containing several focally hyperplastic mucosal-associated lymphoid aggregates - no gastric mucosa identified. . C. Esophageal biopsies, distal esophagus: - Segments of gastric mucosa showing mild to moderate chronic inflammation - no squamous esophageal mucosa identified. . D. Terminal ileum biopsies: - No significant pathologic abnormalities. . E. Right colon biopsies: - No significant pathologic abnormalities. . F. Left colon biopsies: - No significant pathologic abnormalities. . G. Colorectal biopsies, rectal polyps: - Hyperplastic polyps. . (JPM:[facility] 04/02/2019) QTP04/02/2019 . 02 Comment: Sections of the jejunum biopsy reveal segments of small intestine mucosa. There are no sprue-like changes or significant inflammatory changes. . Sections of the gastric polyp biopsy reveals segments of small intestine mucosa containing several focally hyperplastic mucosal-associated lymphoid aggregates. There are no sprue-like changes or significant inflammatory changes. There is no gastric mucosa present. . Sections of the distal esophageal biopsy reveal multiple segments of gastric mucosa showing mild to moderate chronic inflammation. There is no squamous esophageal mucosa. . Sections of the terminal ileum biopsy reveal segments of small intestine mucosa showing no sprue-like changes or significant inflammatory changes. . Sections of the right colon biopsy reveal multiple segments of colonic mucosa containing a few mucosal-associated lymphoid aggregates. There is no evidence of a chronic destructive colitis, lymphocytic colitis, or collagenous colitis. . Sections of the left colon biopsy again reveal multiple segments of colonic mucosa containing several mucosal-associated lymphoid aggregates. There is no evidence of a chronic destructive colitis, lymphocytic colitis or collagenous colitis. . Sections of the rectal biopsy reveal hyperplastic polyps. There are no adenomatous changes or evidence of malignancy. (JPM:[facility] 04/02/2019) . 02 Electronically signed: . Atif Sawyer MD, Pathologist NPI- [id number] . 01 Gross description: . A. Received in formalin labeled "Harvey, Gertrude, jejunum," are 3 segments of hinojosa soft tissue measuring 1.2 x 0.9 x 0.3 cm in aggregate dimensions and ranging from 0.4 to 0.6 cm in maximum dimension. The specimen is submitted entirely in cassette A1. . B. Received in formalin labeled "Harvey, Gertrude, gastric polyp," are 3 segments of hinojosa soft tissue measuring 1.2 x 0.8 x 0.1 cm in aggregate dimensions and ranging from 0.3 to 0.9 cm in maximum dimension. The specimen is submitted entirely in cassette B1. . C. Received in formalin labeled "Harvey, Gertrude, distal esophagus," are 6 segments of hinojosa soft tissue measuring 1.8 x 0.7 x 0.2 cm in aggregate dimensions and ranging from 0.2 to 0.5 cm in maximum dimension. The specimen is submitted entirely in cassette C1. . D. Received in formalin labeled "Harvey, Gertrude, terminal ileum," are 2 segments of hinojosa soft tissue measuring 0.9 x 0.3 x 0.2 cm in aggregate dimensions and ranging from 0.4 to 0.5 cm in maximum dimension. The specimen is submitted entirely in cassette D1. . E. Received in formalin labeled "Harvey, Gertrude, right colon," are 5 segments of hinojosa soft tissue measuring 1.2 x 0.7 x 0.3 cm in aggregate dimensions and ranging from 0.3 to 0.5 cm in maximum dimension. The specimen is submitted entirely in cassette E1. . F. Received in formalin labeled "Harvey, Gertrude, left colon," are 7 segments of hinojosa soft tissue measuring 1.5 x 1.1 x 0.3 cm in aggregate dimensions and ranging from 0.3 to 0.5 cm in maximum dimension. The specimen is submitted entirely in cassette F1. . G. Received in formalin labeled "Harvey, Gertrude, rectum polyps," are 3 segments of hinojosa soft tissue measuring 0.9 x 0.7 x 0.2 cm in aggregate dimensions and ranging from 0.3 to 0.4 cm in maximum dimension. The specimen is submitted entirely in cassette G1. ([facility]; 04/01/2019) TOB/TOB . 02 Pathologist provided ICD-10: K20.9, K62.1 . 02 CPT . 407977, 986209, 400513, 441680, 108548, 285449, 327554 Specimen Comment: A courtesy copy of this report has been sent to Specimen Comment: [phone], . Specimen Comment: Report sent to / DR CHEEK Performed at: 01 [facility] [address], [place] [id number] MD Deng Angel MD Phone: [phone] Performed at: 02 [facility] [address] [place], [place] [id number] MD Atif Sawyer MD Phone: [phone]
== END | disposition home or self-care (01) ==
LOC: ENDOS 10:06
PROVIDERS: ATTEND Internal Medicine Gastroenterology
DX: K64.0 First degree hemorrhoids (principal); K62.1 Rectal polyp; K21.0 Gastro-esophageal reflux disease with esophagitis; Z88.0 Allergy status to penicillin; Z88.1 Allergy status to other antibiotic agents; F41.9 Anxiety disorder, unspecified; F32.9 Major depressive disorder, single episode, unspecified; E03.9 Hypothyroidism, unspecified; G47.30 Sleep apnea, unspecified; Z82.49 Family history of ischemic heart disease and other diseases of the circulatory system; Z98.0 Intestinal bypass and anastomosis status; Z87.891 Personal history of nicotine dependence; Z79.899 Other long term (current) drug therapy; Z90.49 Acquired absence of other specified parts of digestive tract; Z90.710 Acquired absence of both cervix and uterus; Z98.84 Bariatric surgery status
CPT/HCPCS: 43239; 45380; 88305; J2001; J2704

== ENCOUNTER → 2019-06-08 | Outpatient (CLI) | payer OTHER ==
[2019-04-01 12:14] VITALS: BP 135/68
[~2019-06-08] MED LIST changes: -IV RINGERS,LACTATED 1000ML 1,000 ML IV SCH; -LIDOCAINE 2% PF 5 ML VIAL. ONE; -PROPOFOL 20 ML IV ONE; -PROPOFOL 40 ML IV ONE
--- NOTE | 2019-06-08 11:14 | CARD ---
MR#: [id number] Date of Study: 06/08/2019 Ordering Physician: ASHELY ANDERSON, Referring Physician: ASHELY ANDERSON Tech: Nora Ho RDCS APPROVED REPORT EXAM: Two-dimensional and M-mode echocardiogram with Doppler and color Doppler. Other Information Quality : Good INDICATION Palpitations 2D DIMENSIONS RVDd3.4 (2.9-3.5cm)Left Atrium(2D)3.7 (1.6-4.0cm) IVSd0.8 (0.7-1.1cm)Aortic Root(2D)2.6 (2.0-3.7cm) LVDd5.0 (3.9-5.9cm)LVOT Diameter2.0 (1.8-2.4cm) PWd0.7 (0.7-1.1cm)LVDs2.5 (2.5-4.0cm) FS (%) 30.0 %SV93.7 ml LVEF(%)60.0 (>50%) Aortic Valve AoV Peak Kin.205.2cm/sAoV VTI39.1cm AO Peak GR.16.9mmHgLVOT Peak Kin.140.3cm/s AO Mean GR.8mmHgAVA (VMAX)2.10cm2 IRA (VTI)2.40cm2 Mitral Valve MV E Lminlxsg668.8cm/sMV DECEL QEJH591jq MV A Rdayssxy85.2cm/sE/A Ratio2.2 Tricuspid Valve TR P. Zoegzqwa706tz/sRAP OYOIVOFY0juCz TR Peak Gr.32epKcYGIY85wzGg Pulmonary Vein S1 Zqamqbyc89.2cm/sD2 Oyqcdlez69.0cm/s LEFT VENTRICLE The left ventricle is normal size. There is normal left ventricular wall thickness. The left ventricu lar systolic function is normal and the ejection fraction is within normal range. The Ejection Fracti on is 55-60%. There is normal LV segmental wall motion. Transmitral Doppler flow pattern is Grade II- pseudonormal filling dynamics. RIGHT VENTRICLE The right ventricle is normal size. The right ventricular systolic function is normal. ATRIA The left atrium size is normal. The right atrium size is normal. The interatrial septum is intact wit h no evidence for an atrial septal defect or patent foramen ovale as noted on 2-D or Doppler imaging. AORTIC VALVE The aortic valve is normal in structure and function. Doppler and Color Flow revealed no significant aortic regurgitation. There is no significant aortic valvular stenosis. MITRAL VALVE The mitral valve is normal in structure and function. There is no evidence of mitral valve prolapse. There is no mitral valve stenosis. Doppler and Color-flow revealed trace mitral regurgitation. TRICUSPID VALVE The tricuspid valve is normal in structure and function. Doppler and Color Flow revealed trace tricus pid regurgitation. The PA pressure was estimated at 25 mmHg. There is no tricuspid valve stenosis. PULMONIC VALVE The pulmonic valve is not well visualized. Doppler and Color Flow revealed trace to mild pulmonic mariposa vular regurgitation. There is no pulmonic valvular stenosis. GREAT VESSELS The aortic root is normal in size. The ascending aorta is normal in size. The IVC is normal in size a nd collapses >50% with inspiration. PERICARDIAL EFFUSION There is no evidence of significant pericardial effusion. Critical Notification Critical Value: No <Conclusion> The left ventricular systolic function is normal and the ejection fraction is within normal range. Th e Ejection Fraction is 55-60%. There is normal LV segmental wall motion. Signed by : Elmer Luna, Electronically Approved : 06/08/2019 11:13:49
== END | disposition home or self-care (01) ==
LOC: ECHO 09:04
PROVIDERS: ATTEND Internal Medicine Cardiovascular Disease
DX: I37.1 Nonrheumatic pulmonary valve insufficiency (principal)
CPT/HCPCS: 93306

== ENCOUNTER → 2020-12-08 | Outpatient (CLI) | payer OTHER ==
[2019-04-01 12:14] VITALS: BP 135/68
[~2020-12-08] MED LIST changes: +SERT-268 PO; -SERT100T8 PO
--- NOTE | 2020-12-08 08:34 | RAD ---
EXAM: Abdomen sonogram. HISTORY: Hyperinsulinemia. TECHNIQUE: Sonographic imaging of the abdomen was performed. COMPARISON: None. FINDINGS: The liver is upper normal in size. There is hepatic steatosis. No focal hepatic lesion is s een. The gallbladder is surgically absent. The common bile duct is dilated to a caliber of 15 mm. The kidneys are normal in size. There is no hydronephrosis. The spleen is mildly enlarged, measuring 13. 7 cm. The pancreas, aorta and inferior vena cava are obscured due to bowel gas. IMPRESSION: 1. Hepatic steatosis and upper normal liver size. 2. Mild splenomegaly. 3. Common bile duct dilatation. This can be seen with reservoir effect status post cholecystectomy. M SPECIAL TAX AUDITOR can be performed if there is concern for occult obstructing etiology. 4. Obscured midline structures due to bowel gas. Electronically signed by: Katarzyna Rosales MD (12/08/2020 8:28 AM) [id number]
== END ==
LOC: US 06:41
PROVIDERS: ATTEND Nurse Practitioner Family
DX: E16.1 Other hypoglycemia (principal); K76.0 Fatty (change of) liver, not elsewhere classified; R16.1 Splenomegaly, not elsewhere classified
CPT/HCPCS: 76700